=== PATIENT | male | born 1950 | race Caucasian/White ===

== ENCOUNTER 2024-12-27 15:17 | Outpatient (AMB) | payer MEDICARE, SELFPAY | END 2024-12-27 15:22 | disposition home or self-care (01) | LOC: HO.HMGAL 15:17 | PROVIDERS: PCP Internal Medicine; Visit Provider Registered Nurse Emergency | DX: J30.89 Other allergic rhinitis (principal) | CPT/HCPCS: 95117; 95165 ==

== ENCOUNTER 2025-01-24 14:37 | Outpatient (AMB) | payer MEDICARE, SELFPAY | END 2025-01-24 14:38 | disposition home or self-care (01) | LOC: HO.HMGAL 14:37 | PROVIDERS: PCP Internal Medicine; Visit Provider Registered Nurse Emergency | DX: J30.89 Other allergic rhinitis (principal) | CPT/HCPCS: 95117; 95165 ==

== ENCOUNTER 2025-02-28 14:41 | Outpatient (AMB) | payer MEDICARE, SELFPAY | END 2025-02-28 14:42 | disposition home or self-care (01) | LOC: HO.HMGAL 14:41 | PROVIDERS: PCP Internal Medicine; Visit Provider Registered Nurse Emergency | DX: J30.89 Other allergic rhinitis (principal) | CPT/HCPCS: 95117; 95165 ==

== ENCOUNTER 2025-03-28 14:49 | Outpatient (AMB) | payer MEDICARE, SELFPAY | END 2025-03-28 14:50 | disposition home or self-care (01) | LOC: HO.HMGAL 14:49 | PROVIDERS: PCP Internal Medicine; Visit Provider Registered Nurse Emergency | DX: J30.89 Other allergic rhinitis (principal) | CPT/HCPCS: 95117; 95165 ==

== ENCOUNTER 2025-04-27 13:21 | Outpatient (AMB) | payer MEDICARE, SELFPAY ==
--- OUTSIDE RECORDS SUMMARY | 2025-04-27 17:33 | XMS_ITS | Data Portability ---
Author Organization [facility], [facility] Address [address] [place] [address] Assessment No assessment recorded. Plan of Treatment Reminders Order Date Submit Date Provider Last Modified By Organization Details Last Modified Time Details Appointments NEW PATIENT 15 2025 10:30A M STAS NOGUERA PA-C Not available Not available Not available Lab None recorded . Referral None recorded . Procedures None recorded . Surgeries None recorded . Imaging XR, knee, 4 or more view - uc 1 4V left knee pain 2024 025 [email or web address] [facility], [address] [facility] [employer], [address], [address], 04/13/2025 11:59:59 Medication Orders None recorded . Patient TargetsNo targets recorded. Patient InstructionsNo instructions recorded. Reason for Referral None Reported. Results Created Date Observation Date Name Description Value Unit Range Abnormal Flag Note LastModifiedBy Organization Detail LastModifiedTime 04/13/2004/13/2025 XR, knee, 4 or more view http:/ [email or web address] ?Encry pted=s hAaTro YD8dLq bEUv6g %2BXZw aYqtaq 0bqfl% 2Fg9IQ a4ajBk vP9nXo QUaueC m3YtLR FvZlgJ JJ8mAn HZtai3 6l4276 AC0Kka nyFUKK jKiQtr MwF INTERFACE [facility] [address], [place], [address], 04/13/2025 10:22:04 04/13/20 25 04/13/2025 XR, knee, 4 or more view http:/ [email or web address] ?Encry pted=s hAaTro YD8dLq bEUv6g %2BXZw aYqtaq 0bqfl% 2Fg9IQ a4ajBk vP9nXo QUaueC m3YtLR FvZlgJ JJ8mAn HZtai3 3d2276 AC0Kka nyFUKK jKiQtr MwF INTERFACE [facility] [address] [facility] [address], [place], [address], 04/13/2025 10:22:06 Result Notes Documentation Provider Name and Address Organization Details Recorded Time Xr, Knee, 4 Or More View : [email or web address] Encrypted=uhSiIiuVN8xSzeE Uv6g%5HGXlhBqzdt7rnlv%2Fg 7IFc4bnFhnJ7rFwPOsuqOv2Fj NVEyRwgRZM0sUyYSlsi76o172 6SB6ZefedEKCSkFwJulGaU Not Available [facility] 04/13/2025 10:22: 05 Xr, Knee, 4 Or More View : [email or web address] Encrypted=pcWuGgaDG8bYzxJ Uv6g%4JNVqoPgdnh7oztx%2Fg 5QSa9lvTcvB7lIrKYkupQv7Cg QMHiCznETD9vZgERzkj61k203 9BP6SihwdNHWYlUuSurPdS Not Available [facility] 04/13/2025 10:22: 07 Medical Equipment None Reported. Allergies No known drug allergies Medications Name Sig Start Date Stop Date Status Note LastModified by Organization Details LastModified Time amoxicillin 500 mg capsule TAKE 4 CAPSULES BY MOUTH 1 HOUR BEFORE DENTAL APPOINTMENT active Not Available Not Available Not Available albuterol sulfate HFA 90 mcg/actuatio n aerosol inhaler USE 2 INHALATIONS ORALLY EVERY 6 HOURS NEEDED FORWHEEZING , SHORTNESS OF BREATH active Not Available Not Available No t Available Wixela Inhub 250 mcg-50 mcg/dose powder for inhalation USE 1 INHALATION ORALLY TWICE DAILY. RINSE MOUTH AND THROAT AFTER USE active Not Available Not Available No t Available Vitals Date Recorded Body height Body mass index (BMI) Body weight Provider Name and Address Organization Details Last Updated DateTime 04/13/2025 182.88 cm 27.1 kg/m2 28576.47 g GONZALO MALLOY [place] - [facility] 04/13/2025 10:10:21 Social History None recorded. Functional Status None recorded. Mental Status None recorded. Family History Nothing Reported. Medical History No medical history recorded. Past Encounters Encounter ID Performer Location Encounter Start Date Encounter Closed Date Diagnosis/Indication Diagnosis SNOMED-CT Code Diagnosis ICD10 Code Diagnosis IMO Codes Diagnosis Note [id number] Eric Duncan PA-C [facility] [place] [address] [place] [address] 04/13/2025 10:01:59 04/22/2025 11:45:22 Pain of left knee joint 5899499044 31379 M25.562 101975 Health Concerns Section Related Observation LastModified by Organization Detai ls LastModified Time None Recorded Concern Status LastModified by Organization Details LastModified Time None Recorded Advance Directives Directive None Recorded Payers Insurance Date Sequence Insurance Name Policy Number Policy Silva Covered Member ID Silva Member ID Guarantor Name 04/22/2025 1 [place] (MEDICARE REPLACEMENT PPO) [id number] Ze Jerometon [id number] Ze Jerometon 04/13/2025 1 [place] [facility] Ze Loaiza [id number] Ze Jerometon Notes Date Note Type Note Provider Name and Address Organization Details Recorded Time 04/13/2025 text/html I am seeing the patient today under the supervision of Dr. Tsai default value who was available but who did not see the patient. History: This pleasant gentleman presents today status post right total knee arthroplasty by Dr. Tsai is doing extremely well. Presents today with roughly 1 month history of left knee pain. He states he twisted his knee walking on uneven ground while walking his dog and an area of pavement that was raised up. States since then has had episodes of giving way pain medially about the knee. Had no training prior to stumbling causing this difficulty. Has had no treatment for this as of yet other than a hinged knee brace he has with minimal benefit. PMH/PSH/MEDS/ALL/FMH/S OC HX/ROS are reviewed in detail, updated and located in the patient's chart. General Exam: Vital signs are as noted below Mental status: Alert and lucid. Normal insight, affect and grooming. 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 No spasticity or clonus noted. Extremities: Calves are soft non tender, skin intact. Orthopedic Examination:Patient has a negative straight leg raise bilaterally. Right Hip: No tenderness. Full range of motion no referred pain in the knee Left Hip: No tenderness. Full range of motion with no referred pain to the knee Right Knee: Well-healed incision. Range of motion 0-1 20 easily. No tenderness. No effusion erythema or warmth. Left Knee: Varus alignment. Passively correctable to neutral with 15 degrees of valgus stress. Range of motion 0-1 20. Minimal effusion. Tenderness medially. Antalgic gait pattern favoring the left side. Peripheral, vascular, lymphatic examination, skin, neurological, coordination, reflexes, sensation are within normal limits. X-rays ordered, obtained and [facility]ivewed at [facility], 4 views of the left knee including a standing AP, Lemus view, nonweightbearing lateral views, and merchant view. These radiographs demonstrate end-stage medial compartment arthritis with varus alignment Assessment: Left knee arthritis with instability PLAN: The patient was thoroughly counseled today regarding their knee condition. Its natural history and the options, both operative and nonoperative. The nature of knee replacement surgery, the potential risks, benefits, and complications, the magnitude of the surgery, the intensity of postoperative recovery as well as its elective nature was explained at length today. Issues regarding lifelong infection and activity precautions were reviewed. The longevity of the implants was discussed. The patient understands the potential need for revision surgery within the next 15 years. The patient understands the potential complexity of a revision situation as well. In regards to today's visit and in discussion of conservative treatment options. We have gone over Tylenol, use of anti-inflammatories, role of physical therapy, as well as intra-articular cortisone injections. He does not wish to pursue injection therapy at this point. Given his instability would recommend a medial environmental resource specialist brace.The patient is ambulatory, but has weakness and/or instability of their extremity which requires stabilization from this semi-rigid/rigid orthosis to improve their function.Verbal and written instructions for the use and application of this item were given. Patient was instructed that should the brace result in increased pain, decreased sensation, increased swelling or an overall worsening of their medical condition, to please contact our office immediately. If at any point the patient wishes to further pursue total knee arthroplasty should call our office be seen by either myself or one of our total joint surgeons and further booked for total knee replacement. 5app speech recognition last scourer software was used to create portions of this document. An attempt at proofreading has been made to minimize errors. Please call for corrections. Eric Duncan PA-C [address] [place] [address] [address], [place], [address], [facility] - [facility] 04/13/2025 15:52:08
--- OUTSIDE RECORDS SUMMARY | 2025-04-27 17:33 | XMS_ITS | Continuity of Care Document ---
Author Organization [place] - [facility], [facility] Address [address] [place] [address] Assessment No assessment recorded. Plan of Treatment Reminders Order Date Submit Date Provider Last Modified By Organization Details Last Modified Time Details Appointments NEW PATIENT 15 2025 10:30A Saima NOGUERA PA-C Not available Not available Not available Lab None recorded . Referral None recorded . Procedures None recorded . Surgeries None recorded . Imaging XR, knee, 4 or more view - uc 1 4V left knee pain 2024 025 [email or web address] [facility], [address] [facility] [address], [facility] [address], [place], [address], 04/13/2025 11:59:59 Medication Orders None recorded . [...] a4ajBk vP9nXo QUaueC m3YtLR FvZlgJ JJ8mAn HZtai3 8d1326 AC0Kka nyFUKK jKiQtr MwF INTERFACE [facility] [address], [place], [address], 04/13/2025 10:22:04 04/13/2004/13/2025 XR, knee, 4 or more view http:/ [email or web address] ?Encry pted=s hAWilfredoo YD8dLq bEUv6g %2BXZw aYqtaq 0bqfl% 2Fg9IQ a4ajBk vP9nXo QUaueC m3YtLR FvZlgJ JJ8mAn HZtai3 2r3789 AC0Kka nyFUKK jKiQtr MwF INTERFACE [facility] [address] [facility] [address], [place], [address], 04/13/2025 10:22:06 Result Notes Documentation Provider Name and Address Organization Details Recorded Time Xr, Knee, 4 Or More View : [email or web address] Encrypted=gdSyOvvDN9mLkiS Uv6g%1VTWcfYzccv5rxiq%2Fg 5URd3wgBjtF1mQjCAewvVm9Mg NTDuHskAIU3qOrHMvpx89n177 6PR6LrogoSYKKeKwGvmPsA Not Available [facility] 04/13/2025 10:22: 05 Xr, Knee, 4 Or More View : [email or web address] Encrypted=bbNgAefBU9xHikG Uv6g%0IRWklColnp9xjtv%2Fg 7NQa7fmMfcZ2lAlHVlknOs5Gc CZUeLvyCVY0nRpBXdqz82j849 1ZT2OpuuvYUIDcKuVpcWzF Not Available [facility] 04/13/2025 10:22: 07 Medical Equipment None Reported. [...] Updated DateTime 04/13/2025 182.88 cm 27.1 kg/m2 42390.47 g GONZALO GAMA MEEKS - [facility] 04/13/2025 10:10:21 Social History None recorded. Functional Status None recorded. Mental Status None recorded. Family History Nothing Reported. Medical History No medical history recorded. Past Encounters Encounter ID Performer Location Encounter Start Date Encounter Closed Date Diagnosis/Indication Diagnosis SNOMED-CT Code Diagnosis ICD10 Code Diagnosis IMO Codes Diagnosis Note [id number] Eric Duncan PA-C [facility] [address] [place] [address] 04/13/2025 10:01:59 04/22/2025 11:45:22 Pain of left knee joint [id number] 13763 M25.562 [id number] Health Concerns Section Related Observation LastModified by Organization Detai ls LastModified Time None Recorded Concern Status LastModified by Organization Details LastModified Time None Recorded Payers Encounter Date Sequence Insurance Name Policy Number Policy Silva Covered Member ID Silva Member ID Guarantor Name 04/13/2025 1 [facility] MEDICARE PPO BLUE (MEDICARE REPLACEMENT PPO) [id number] Ze Jerometon [id number] Ze Jerometon Notes Date Note Type Note [...] and lucid. Normal insight, affect and grooming. 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 No spasticity [...] limits. X-rays ordered, obtained and reivewed at [facility], 4 views of the left knee including [...] Given his instability would recommend a medial photographer scientific brace.The patient is ambulatory, but has weakness [...] and further booked for total knee replacement. [employer] speech recognition dry man software was used to create portions of this document. An attempt at proofreading has been made to minimize errors. Please call for corrections. Eric Duncan PA-C [address] [place] [address] [address], [place], [address], [facility] - [facility] 04/13/2025 15:52:08
== END 2025-04-27 13:22 | disposition home or self-care (01) ==
LOC: HO.HMGAL 13:21
PROVIDERS: PCP Internal Medicine; Visit Provider Registered Nurse Emergency
DX: J30.89 Other allergic rhinitis (principal)
CPT/HCPCS: 95117; 95165